=== PATIENT | female | born 1960 | race Caucasian/White ===

== ENCOUNTER → 2016-12-15 | Outpatient (CLI) | payer OTHER ==
[2016-12-15 14:45] LABS: Aty Lym Flag Slight; CH 31.6; CHCM 33.8; HCT 46.9 % (34.0-46.0); HDW 2.33; HGB 15.2 gm/dL (11.4-16.0); MCH 30.4 pg (25.0-35.0); MCHC 32.5 g/dL (31.0-37.0); MCV 93.7 fL (80.0-100.0); Mean Platelet Volume 6.6; RBC 5.01 m/uL (3.80-5.40); RDW 12.4 % (11.5-15.5); WBC 4.8 k/uL (3.8-10.6); WBC (Perox) 5.28
[2016-12-15 15:07] LABS: Add Differential Manual Differential
[2016-12-15 15:10] LABS: Nucleated Red Blood Cells 0 /100 WBC (0-0); Total Cells Counted 100
[2016-12-15 15:13] LABS: Manual Review Performed
== END | disposition home or self-care (01) ==
LOC: LABWHC1 13:56
PROVIDERS: ATTEND Internal Medicine Critical Care Medicine
DX: J45.901 Unspecified asthma with (acute) exacerbation (principal)
CPT/HCPCS: 36415; 82784; 82785; 85025